=== PATIENT | male | born 2005 | race Two or more races ===

== ENCOUNTER → 2024-02-18 | Outpatient (CLI) | payer MEDICAID, SELFPAY ==
--- NOTE | 2024-02-18 08:56 | XR_ITS ---
Examination: Abdomen sonogram, complete Date and time of exam: February 18, 2024 0911 hours INDICATIONS: Upper abdominal pain beginning 3 weeks ago. Technique: Multiple real-time grayscale transabdominal sonographic images of the abdomen have been obtained. Findings: Normal gallbladder Normal common bile duct 0.5 cm Pancreatic head 1.7 cm Aorta not enlarged Liver 15.3 cm fatty liver Normal hepatopedal portal venous flow Patent IVC Right kidney 10.2 x 5.1 x 5.5 cm cortex 1.6 cm Left kidney 10.4 x 4.2 x 4.9 cm cortex 1.6 cm Mild left renal parenchymal scar formation No hydronephrosis Spleen 10.1 cm IMPRESSION: Normal gallbladder Fatty liver Mild left renal parenchymal scar formation
--- NOTE | 2024-02-18 08:56 | XR_ITS ---
Examination: Abdomen AP single view Technique: AP portable supine abdomen, single view Exam date and time: February 18, 2024 0900 hours INDICATIONS: Abdominal pain today FINDINGS: Moderate stool throughout the colon No obstruction No free air IMPRESSION: Moderate stool throughout the colon
== END | disposition home or self-care (01) ==
PROVIDERS: PCP Registered Nurse Community Health; Referring Provider Registered Nurse Community Health; Visit Provider Registered Nurse Community Health
DX: K59.00 Constipation, unspecified (principal); K76.0 Fatty (change of) liver, not elsewhere classified; N28.89 Other specified disorders of kidney and ureter
CPT/HCPCS: 74018; 76700

== ENCOUNTER → 2024-03-24 | Outpatient (CLI) | payer MEDICAID, SELFPAY ==
--- NOTE | 2024-03-24 08:23 | XR_ITS ---
Examination: PA lateral chest 2 views TECHNIQUE: Upright PA lateral chest 2 views Exam date and time: March 24, 2024 0903 hours Comparison 12/11/2023 INDICATION: Chest pain one month. FINDINGS: Normal heart size Lungs are clear. The osseous structures are intact IMPRESSION: No active disease
== END | disposition home or self-care (01) ==
LOC: CDIM 08:17
PROVIDERS: PCP Registered Nurse Community Health; Referring Provider Registered Nurse Community Health; Visit Provider Registered Nurse Community Health
DX: R06.00 Dyspnea, unspecified (principal)
CPT/HCPCS: 71046